=== PATIENT | male | born 1995 | race Caucasian/White ===

== ENCOUNTER → 2016-06-19 | Outpatient (CLI) | payer BC ==
[~2016-06-19] MED LIST: GADOXETATE DISODIUM (NON-WT BASED PROCEDURE) IV PRN; PRED15SO16 PO
--- NOTE | 2016-06-19 11:38 | DIAGNOSTIC IMAGING REPORT ---
MRI OF THE ABDOMEN COMBO CLINICAL HISTORY: Follow-up unspecified hepatic lesion.. COMPARISON STUDY: No prior studies are available for comparison at the time of dictation. TECHNIQUE: MRI of the abdomen is performed transverse T1 and T2-weighted sequences in the axial and coronal planes. Contrast enhanced sequences were acquired following the IV administration of 10 cc of Eovist. Subtraction imaging was utilized. FINDINGS: Lower chest: No pleural effusion is identified. The heart is normal in size. Liver: The liver is top normal in size measuring 18 cm in length. The liver demonstrates drop in signal intensity on the opposed phase images consistent with hepatic steatosis. Fatty sparing is seen adjacent to gallbladder fossa. No intrahepatic biliary ductal dilatation is seen. The hepatic veins and portal veins are patent. No hepatic lesion is identified. Gallbladder: Unremarkable. Spleen: The spleen is enlarged measuring 14.5 cm in length. The spleen is otherwise normal in contour and signal intensity. Pancreas: Unremarkable. Adrenal glands: Unremarkable. Kidneys: The kidneys are normal in size and without hydronephrosis. The kidneys enhance and excrete symmetrically. Abdominal aorta: Normal in course and caliber. Bowel: Visualized portions of the small bowel and colon show no evidence of obstruction. Peritoneum: There is no abdominal ascites. There is a fat-containing umbilical hernia. Lymphadenopathy: None. Skeletal structures: Visualized skeletal structures times are normal marrow signal intensity. IMPRESSION: 1. No hepatic lesion is identified. 2. Findings suggest mild hepatic steatosis. 3. Splenomegaly. Electronically signed by: Jaiden Mathis M.D. 06/19/2016 11:37 AM Dictated Date/Time: 06/19/2016 11:28 AM
== END | disposition home or self-care (01) ==
LOC: C.MRIBC 09:50
PROVIDERS: ATTEND Physician Assistant
DX: K76.9 Liver disease, unspecified (principal)